=== PATIENT | female | born 2000 | race Caucasian/White ===

== ENCOUNTER 2021-09-16 09:03 | Emergency (ER) | payer BC ==
--- NOTE | 2021-09-16 10:01 | EDM.PDOC ---
ED HPI GENERAL MEDICAL PROBLEM - General Chief Complaint: General Stated Complaint: CONGESTION, COUGH, SORETHROAT Time Seen by Provider: 09/16/21 09:40 Source of Information: Reports: Patient History Limitations: Reports: No Limitations - History of Present Illness INITIAL COMMENTS - FREE TEXT/NARRATIVE: She presents to the emergency department by private vehicle. She is complaining of nasal congestion with mild yellow drainage, sore throat, cough with yellowish sputum and intermittent chills for the past 3 days. Her main complaint is the sore throat described as dry and scratchy. Increased pain with swallowing but she is able to swallow. No fever that she is aware of. She did have some nausea on the first day but that has resolved. No known exposures. She is a s tudent teacher teaching third grade. No loss of taste or smell. She does have a history of migraine headaches. She takes Topamax daily though has not been taking that recently. No other underlying medical problems or regular medications. Headache Pain Score (Numeric/FACES): 1 - Related Data Allergies Allergy/AdvReac Type Severity Reaction Status Date / Time No Known Allergies Allergy Verified 09/16/21 09:10 Home Meds: Home Meds SUMAtriptan succinate [Imitrex] 100 mg PO ASDIRECTED PRN 09/16/21 [History] Topiramate [Topamax] 100 mg PO BEDTIME 09/16/21 [History] Past Medical History Neurological History: Reports: Migraines - Past Surgical History HEENT Surgical History: Reports: Oral Surgery Social & Family History - Tobacco Use Tobacco Use Status *Q: Never Tobacco User - Recreational Drug Use Recreational Drug Use: No ED ROS GENERAL - Review of Systems Review Of Systems: See Below Constitutional: Reports: Chills. Denies: Fever HEENT: Reports: Rhinitis, Sinus Problem, Throat Pain. Denies: Ear Discharge, Ear Pain Respiratory: Reports: Cough, Sputum (Yellow). Denies: Shortness of Breath, Wheezing Cardiovascular: Denies: Chest Pain, Palpitations Endocrine: Reports: Fatigue GI/Abdominal: Denies: Abdominal Pain, Constipation, Diarrhea, Nausea, Vomiting Neurological: Denies: Confusion, Dizziness, Headache Psychiatric: Denies: Agitation, Anxiety ED EXAM, GENERAL - Physical Exam Exam: See Below Exam Limited By: No Limitations General Appearance: Alert, WD/WN, No Apparent Distress Ears: Normal External Exam, Normal Canal, Hearing Grossly Normal, Normal TMs Nose: Normal Inspection, Normal Mucosa, No Blood Throat/Mouth: Normal Lips, Normal Teeth, Normal Gums. No: Normal Oropharynx (Mild diffuse erythema. No exudates or lesions.) Head: Atraumatic, Normocephalic Neck: Normal Inspection, Non-Tender. No: Lymphadenopathy (L), Lymphadenopathy (R) Respiratory/Chest: No Respiratory Distress, Lungs Clear, Normal Breath Sounds Course - Vital Signs Last Recorded V/S: Last Vital Signs Temp 36.9 C 09/16/21 09:04 Pulse 82 09/16/21 09:04 Resp 18 09/16/21 09:04 BP 128/73 09/16/21 09:04 Pulse Ox 100 09/16/21 09:04 - Orders/Labs/Meds Orders: Active Orders 24 hr Category Date Time Status Nurse Communication: Isolation [RC] ASDIRECTED Care 09/16/21 09:57 Active CULTURE STREP A CONFIRMATION [RM] Stat Lab 09/16/21 09:30 Results STREP SCRN A RAPID W CULT CONF [RM] Stat Lab 09/16/21 09:30 Results Isolation [COMM] Routine Oth 09/16/21 09:57 Active Labs: Laboratory Tests 09/16/21 Range/Units 09:28 SARS-CoV-2 RNA ([facility]CO[facility]) Negative (NEGATIVE) Departure - Departure Time of Disposition: 10:45 Disposition: Home, Self-Care 01 Condition: Good Clinical Impression: Viral URI - Discharge Information *PRESCRIPTION DRUG MONITORING PROGRAM REVIEWED*: Not Applicable *COPY OF PRESCRIPTION DRUG MONITORING REPORT IN PATIENT [place]: Not Applicable Instructions: Upper Respiratory Infection, Adult, [id number] Referrals: PCP,None [Primary Care Provider] - Forms: ED Department Discharge Additional Instructions: Patient was seen in the ED today, and unable to take her scheduled exam. Push fluids. Over the counter cough and cold medicines as needed. Over the counter throat spray or lozenges as needed. Gargle with warm salt water 3-4 times daily. Tylenol or Advil as needed for fever or body aches. Follow up with primary provider if not improving. Sepsis Event Note (ED) - Evaluation Sepsis Screening Result: No Definite Risk - Focused Exam Vital Signs: Vital Signs Temp Pulse Resp BP Pulse Ox 09/16/21 09:04 36.9 C 82 18 128/73 100 - Problem List & Annotations (1) Viral URI SNOMED Code(s): 170628552 Code(s): J06.9 - ACUTE UPPER RESPIRATORY INFECTION, UNSPECIFIED Status: Acute - My Orders Last 24 Hours: My Active Orders 09/16/21 09:30 CULTURE STREP A CONFIRMATION [RM] Stat STREP SCRN A RAPID W CULT CONF [RM] Stat 09/16/21 09:57 Nurse Communication: Isolation [RC] ASDIRECTED Isolation [COMM] Routine - Assessment/Plan Last 24 Hours: My Active Orders 09/16/21 09:30 CULTURE STREP A CONFIRMATION [RM] Stat STREP SCRN A RAPID W CULT CONF [RM] Stat 09/16/21 09:57 Nurse Communication: Isolation [RC] ASDIRECTED Isolation [COMM] Routine Plan: Patient was seen in the ED today, and unable to take her scheduled exam. Push fluids. Over the counter cough and cold medicines as needed. Over the counter throat spray or lozenges as needed. Gargle with warm salt water 3-4 times daily. Tylenol or Advil as needed for fever or body aches. Follow up with primary provider if not improving.
[2021-09-16 10:27] LABS: CORONAVIRUS COVID-19 NAA NEGATIVE (NEGATIVE)
== END 2021-09-16 10:50 | disposition home or self-care (01) ==
LOC: LL.ED 09:03
DX: J06.9 Acute upper respiratory infection, unspecified (principal); G43.909 Migraine, unspecified, not intractable, without status migrainosus; Z79.899 Other long term (current) drug therapy; Z20.822 Contact with and (suspected) exposure to COVID-19
CPT/HCPCS: 87081; 87430; 99283; U0002